=== PATIENT | male | born 1945 | race Caucasian/White ===

== ENCOUNTER 2024-12-07 07:43 | Emergency (ER) | payer OTHER, SELFPAY ==
[2024-12-07 07:59] VITALS: BP 169/80; BMI 39.1
[2024-12-07 08:07] VITALS: BP 140/65
--- NOTE | 2024-12-07 08:17 | ED.GENMED ---
History of Present Illness
General
Chief Complaint: Catheter/Tube Problem
Source: patient
Exam Limitations: none
Time Seen by Provider: 12/07/24 08:09
Nursing documentation reviewed up to this point in time: agreed with
History of Present Illness
History of Present Illness:
79 [facility], Flu, DC'd with Alvarado catheter. Presents for alvarado not draining and lower abdominal pain.
Denies f/c/n/v/d/c. He thinks he 'did something' to the catheter when he put a Depends on.
Past History
Past History
ED Past Medical History: Other (DVT urinary retention)
ED Past Surgical History: Negative Cardiac
Social History
Tobacco: Non-smoker
Alcohol: Occasional
Drug: Marijuana
Personal: Single
Living: with family
Employment: Employed
Family History
Family History: Other (Noncontributory)
Review of Systems
Review of Systems
Allergies reviewed?: Yes
All Other Systems: ROS reviewed and negative except as documented in HPI and ROS
Constitutional: Denies fever or chills
Respiratory: Denies trouble breathing
Cardiac: Denies chest pain
ABD/GI: Reports abdominal pain; Denies nausea or vomiting
: Reports other (Alvarado catheter not draining)
Musculoskeletal: Reports edema (Lymphedema R>L)
Neurological: Reports no symptoms
Phy Exam
Physical Exam
Physical Exam:
GENERAL: No acute distress. A&Ox3.
CONSTITUTIONAL: Afebrile.
EYES: clear, conjunctivae normal
ENMT: moist mucus membranes
RESPIRATORY: Regular respirations, nonlabored, lungs clear.
CARDIOVASCULAR: Regular rate and rhythm, no murmurs, no rubs.
GI: Soft, nontender, normal BS
: Alvarado has no drainage.
MUSCULOSKELETAL: Moves with ease. Well perfused. +1-2 lymphedema LLE, +1 lymphedema RLE
SKIN: Warm, dry, pink
PSYCH: Normal mood and affect. Well kept, interactive and appropriate
NEUROLOGIC: Awake, alert and oriented. No focal neurological deficits
Course
Vital Signs
Initial and Last Documented VS:
Initial Vital Signs
Temp Pulse Resp BP Pulse Ox
97.7 F 85 18 169/80 97
12/07/24 07:59 12/07/24 07:59 12/07/24 07:59 12/07/24 07:59 12/07/24 07:59
Last Documented Vital Signs
Temp Pulse Resp BP Pulse Ox
97.7 F 78 18 173/89 98
12/07/24 07:59 12/07/24 09:33 12/07/24 09:33 12/07/24 09:33 12/07/24 09:33
MDM/Problems Addressed
Differential Diagnosis Includes:
Kinked Alvarado catheter.
MDM/Problems Addressed:
79 yo male [facility], Flu, DC'd with Alvarado catheter. Presents for alvarado not draining and lower abdominal pain.
Denies f/c/n/v/d/c. He thinks he 'did something' to the catheter when he put a Depends on.
Afebrile, NAD
Alvarado catheter changed and drained 1200 ml clear yellow urine and much relief of pt abdominal pain.
Case discussed with Dr. Hunt who agrees:
No need for further intervention.
Pt will f/u with Urology as instructed by [facility]. Pt son is a doctor and follows him closely.
*Critical Care Note
Total Time (30-74mins, 75-104mins- exclusive of procedures): Not Applicable
ED Attending Note
-
Portions of this chart may have been created with voice recognition software.� Occasional wrong word or��sound alike� substitutions may have occurred due to the inherent limitations of voice recognition software.
Discharge Plan
Departure
Patient Disposition: Home (Routine Discharge)
Date of Disposition: 12/07/24
Time of Disposition: 08:16
Patient with high blood pressure during this ER visit?: No
Condition: Serious
Discharge Problem:
Acute retention of urine, Complication of Alvarado catheter
Instructions: How to Care for Your Alvarado Catheter, Male
Prescriptions:
No Action
acetaminophen 325 MG tablet
325 mg PO TIDPRN PRN (Reason: mild pain )
ascorbic acid (vitamin C) [Vitamin C] 500 MG tablet
500 mg PO DAILY
cholecalciferol (vitamin D3) 1,000 UNITS tablet
1,000 units PO DAILY
omega 1-wlv-vtd-fish oil [Fish Oil] 1 EACH capsule
1 ea PO DAILY
multivitamin with folic acid [Tab-A-Luann] 1 TABLET tablet
1 tab PO DAILY
turmeric-turmeric root extract 1 EACH capsule
1 ea PO DAILY
Prostate Supplement
1 cap PO DAILY
carvedilol 6.25 MG tablet
6.25 mg PO BID 0RF
miconazole nitrate [Miconazorb AF] 1 APPLIC powder
1 applic topical BID Qty: 1 0RF
thiamine HCl (vitamin B1) 100 MG tablet
100 mg PO BID 0RF
amlodipine 5 MG tablet
5 mg PO DAILY 0RF
tamsulosin 0.4 MG capsule
0.8 mg PO DAILY 0RF
pantoprazole 40 MG tablet,delayed release (DR/EC)
40 mg PO BID 0RF
folic acid 1 MG tablet
1 mg PO DAILY 0RF
levofloxacin 500 MG tablet
500 mg PO DAILY Qty: 4 0RF
finasteride 5 MG tablet
5 mg PO DAILY 0RF
white petrolatum [Hydrophor] 1 APPLIC ointment
1 applic topical DAILY 0RF
white petrolatum [Hydrophor] 1 APPLIC ointment
1 applic topical PRN PRN (Reason: DRAINAGE) 0RF
Referrals:
Mohit Macdonald DO [Family Provider] -
Sim Encarnacion MD [Active] - Call in 1-3 days for appt
Activity Restrictions/Additional Instructions:
As we discussed, call your urologist and asked them when they want to see you for follow-up.
Interventions
Interventions:
*Risk Screen - Suicide Last Done: 12/07/24 07:59
*General Assessment Last Done: 12/07/24 07:59
*Neglect/Abuse Screening Last Done: 12/07/24 07:59
ED- Fall Risk Assessment Last Done: 12/07/24 09:33
*ED COVID-19 Vaccine History Last Done: 12/07/24 07:59
*Nursing Disposition Last Done: 12/07/24 09:33
IB-Juetqv-Reiuwueuof Assessment Last Done: 12/07/24 07:59
ED-Male Genitourinary Assessment Last Done: 12/07/24 07:59
Discharge Date and Time
Discharge Date/Time: 12/07/24 09:34
Print Language: CITIZEN OF [place]
[2024-12-07 09:33] VITALS: BP 173/89
== END 2024-12-07 09:34 | disposition home or self-care (01) ==
LOC: EMR 07:43
PROVIDERS: EMERGENCY PHYSICIAN Student in an Organized Health Care Education/Training Program; FAMILY PHYSICIAN Family Medicine
DX: R33.9 Retention of urine, unspecified (principal); T83.9XXA Unspecified complication of genitourinary prosthetic device, implant and graft, initial encounter; Y92.9 Unspecified place or not applicable; Z86.718 Personal history of other venous thrombosis and embolism
CPT/HCPCS: 99282